=== PATIENT | female | born 1955 | race Two or more races ===

== ENCOUNTER 2020-03-10 09:49 | Outpatient (CLI) | payer OTHER | END 2020-03-10 10:02 | disposition home or self-care (01) | LOC: SONOGRAMA 09:49 | PROVIDERS: ATTEND Obstetrics & Gynecology | DX: N92.1 Excessive and frequent menstruation with irregular cycle (principal); N95.8 Other specified menopausal and perimenopausal disorders ==

== ENCOUNTER 2020-05-07 08:45 | Outpatient (CLI) | payer OTHER | END 2020-05-07 08:53 | disposition home or self-care (01) | LOC: SONOGRAMA 08:45 | PROVIDERS: ATTEND Pathology Anatomic Pathology & Clinical Pathology | DX: E04.1 Nontoxic single thyroid nodule (principal) ==